=== PATIENT | female | born 1945 | race Caucasian/White ===

== ENCOUNTER → 2018-10-09 | Outpatient (CLI) | payer MEDICARE ==
--- NOTE | 2018-10-09 15:55 | US ---
EXAMINATION TYPE: US carotid duplex BILAT DATE OF EXAM: 10/09/2018 COMPARISON: NONE CLINICAL HISTORY: 73-year-old female R09.89 Bilateral Carotid Bruits. Bilateral bruits TECHNIQUE: Carotid duplex ultrasound examination. Indirect Doppler criteria was utilized. FINDINGS: EXAM MEASUREMENTS: RIGHT: Peak Systolic Velocity (PSV) cm/sec ----- Right CCA: 87.7 ----- Right ICA: 213.5 ----- Right ECA: 122.6 ICA/CCA ratio: 2.4 RIGHT: End Diastole cm/sec ----- Right CCA: 22.7 ----- Right ICA: 74.1 ----- Right ECA: 25.4 LEFT: Peak Systolic Velocity (PSV) cm/sec ----- Left CCA: 88.8 ----- Left ICA: 188.3 ----- Left ECA: 81.1 ICA/CCA ratio: 2.1 LEFT: End Diastole cm/sec ----- Left CCA: 28.2 ----- Left ICA: 55.1 ----- Left ECA: 13.9 VERTEBRALS (direction of flow): Right Vertebral: Antegrade Left Vertebral: Antegrade Rhythm: Normal Bilateral ICA's tortuous, more on right, causing elevated velocities/ No evidence of significant sten osis bilaterally IMPRESSION: Despite the elevated bilateral ICA velocities, no significant atherosclerotic narrowing is seen by ul alexis. The ICAs are very tortuous, right greater than left, and this seems to account for the inc reased velocities. Criteria for Assigning % of Stenosis / Diameter reduction (Estimation based on the indirect measurements of the internal carotid artery velocities (ICA PSV). 1. Normal (no stenosis)=ICA PSV < 125 cm/s: ratio < 2.0: ICA EDV<40 cm/s. 2. Less than 50% stenosis=ICA PSV < 125 cm/s: ratio < 2.0: ICA EDV<40 cm/s. 3. 50 to 69% stenosis=ICA PSV of 125 to 230 cm/s: ration 2.0 ? 4.0: ICA EDV 40-100 cm/s. 4. Greater than 70% stenosis to near occlusion= ICA PSV > 230 cm/s: ratio > 4.0: ICA EDV > 100 cm/s. 5. Near occlusion= ICA PSV velocities may be low or undetectable: variable ratio and ICA EDV. 6. Total occlusion=unable to detect flow.
== END | disposition home or self-care (01) ==
LOC: RADUSWWP 11:58
PROVIDERS: ATTEND Psychiatry & Neurology Neurology
DX: I77.1 Stricture of artery (principal)
CPT/HCPCS: 93880